=== PATIENT | female | born 1970 | race Caucasian/White ===

== ENCOUNTER 2019-07-19 19:38 | Emergency (ER) | payer OTHER, SELFPAY ==
--- NOTE | ~2019-07-19 | XR_ITS ---
EXAMINATION: XR hand RT min 3V EXAM DATE: 07/19/2019 20:07 INDICATION: Initial encounter following injury, with pain of the right hand. Drill injury between fir st and second metacarpals. TECHNIQUE: Right hand frontal, lateral and oblique projections obtained and reviewed. There is no pr ior study for comparison. FINDINGS: Right metacarpal bones are unremarkable. There are no acute fractures or dislocations iden tified. There is no subcutaneous gas. Subcutaneous gas overlying the thenar eminence from drill inj ury. There are no radiopaque foreign bodies. IMPRESSION: 1. Right hand exam without acute osseous findings. 2. Subcutaneous gas. Reviewed, dictated and finalized at location A. TRUCTION ADMINISTRATOR
[2019-07-19 19:53] VITALS: BP 132/73; PULSE 71; RESP 18; TEMP 37; O2SAT 100
--- NOTE | 2019-07-19 20:00 | ED.UPPEXIN ---
HPI - Extremity Injury (Upper) General Stated Complaint: right hand injury Time Seen by Provider: 07/19/19 20:00 Source: patient History of Present Illness HPI narrative: Patient presents with a puncture wound to the webbing between her thumb and second finger of her right hand. Patient states 4 hours ago today she was using a drill at home and missed and drilled into her hand between her thumb and second finger. No active bleeding. Patient states she cleansed the area well with saline and antibacterial soap. No active bleeding. Patient is up-to-date on her tetanus shot. Patient has normal range of motion to her hand patient denies any numbness or tingling. complaint: injury to: right Other Extremity Injury: Right: hand Place: home Related Data Home Medications Medication Instructions Recorded Confirmed sertraline 50 mg tablet 50 mg PO DAILY 06/09/19 valacyclovir 1 gram tablet 1,000 mg PO DAILY 06/09/19 Allergies Allergy/AdvReac Type Severity Reaction Status Date / Time Quinolones Allergy Severe Severe Verified 06/09/19 11:19 joint swelling and inflammation, ciprofloxacin Allergy Unknown Unknown Verified 06/09/19 11:19 Penicillins Allergy Unknown Unknown Verified 06/09/19 11:19 shellfish derived Allergy Unknown Unknown Verified 06/09/19 11:19 SEAFOOD Allergy Severe VIOLENTLY Uncoded 04/27/12 14:51 ILL Review of Systems Review of Systems: Narrative: CONSTITUTIONAL: Denies fever, chills, or sweats. EYES: Denies visual changes, redness, or discharge. ENT: Denies rhinorrhea, congestion, sore throat, or otalgia. CARDIOVASCULAR: Denies chest pain, palpitations, or edema. RESPIRATORY: Denies cough or dyspnea. GASTROINTESTINAL: Denies abdominal pain, nausea, vomiting, or diarrhea. GENITOURINARY: Denies dysuria or hematuria. SKIN: Denies rash or itching. MUSCULOSKELETAL: Denies back pain, joint pain, or myalgia. HAND EXAM -puncture wound to web between right thumb and second finger no swelling, no erythema, normal digit cascade with flexion of fingers, median nerve, ulnar nerve, radial nerve is intact. Normal sensation of each side of each finger, can perform `ok? sign, `cross over finger test of index and middle fingers? and `thumbs up? sign, normal thumb opposition, no scissoring. good capillary refill and radial pulse. normal flexion and extension of fingers and wrist. normal supination at wrist. Normal forearm and elbow exam. NEUROLOGIC: Denies headache, numbness, or weakness. PSYCHIATRIC: Denies anxiety or depression. PMFSH Past Medical History Medical History Anemia Anxiety Vaginal delivery x3 Surgical History Surgical History H/O LEEP History of dilation and curettage History of knee surgery Previous section Family History Family History Father Hypertension Grandparent Family history of coronary artery disease, Onset Age: 73 Social History Social History Smoking status: Never smoker Second hand tobacco smoke exposure: No Alcohol intake: current Comments At time of signature, agree with nursing past medical, surgical, social and family history. There is no relevant family history pertinent to the presenting complaint Exam Narrative: Exam Narrative: GENERAL: Well-appearing, well-nourished, and in no acute distress. HEAD: Normocephalic, atraumatic. EYES: PERRLA and EOMI. ENT: Nares clear, no rhinorrhea or epistaxis. Mucous membranes moist. NECK: Supple. CHEST: Clear to auscultation. No respiratory distress. HEART: Regular rate and rhythm. No murmur heard. Normal peripheral pulses. ABDOMEN: Soft, nontender, nondistended, normal active bowel sounds. EXTREMITIES: Normal range of motion. No edema. HAND EXAM -puncture wound between
== END 2019-07-19 20:15 | disposition home or self-care (01) ==
PROVIDERS: Emergency Provider Nurse Practitioner Family; PCP Internal Medicine
DX: S61.431A Puncture wound without foreign body of right hand, initial encounter (principal); W29.8XXA Contact with other powered hand tools and household machinery, initial encounter; S60.221A Contusion of right hand, initial encounter; F41.9 Anxiety disorder, unspecified
CPT/HCPCS: 73130; 99213; G0463

== ENCOUNTER 2022-07-15 09:34 | Outpatient (CLI) | payer OTHER, SELFPAY ==
--- NOTE | 2022-07-15 10:45 | NEURO_ITS ---
Impression: Patient reports history of weakness in right upper extremity. # Normal nerve conduction study. 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 # The can be seen in the setting of C5/C6 radiculopathy. # Clinical correlation recommended. Motor Nerve Conduction Upper Extremities Median Nerve Conduction Velocity (m/sec) Terminal Latency (msec) Response Voltage(mV) Elbow-Wrist Wrist Elbow Wrist Right 58 3.3 4 6 Left 58 3.8 4 5 Ulnar Nerve Conduction Velocity (m/sec) Terminal Latency (msec) Response Voltage(mV) Above Elbow Below Elbow Wrist Above Elbow Below Elbow Wrist Right 56 58 3.0 6 7 8 Left 57 57 2.8 7 7 8 F-Wave Latency Median (ms) Ulnar (ms) Right 28.7 28.7 Left 29.4 28.6 Sensory Nerve Conduction Upper Extremities Median Nerve Stimulation Terminal Latency (msec) Wrist/Digit Response Voltage (uV) Wrist Right 3.5/3.7 56/88 Left 3.9/3.8 38/29 Ulnar Nerve Stimulation Terminal Latency (msec) Wrist/Digit Response Voltage (uV) Wrist Right 3.5 59 Left 3.2 59 Radial Nerve Terminal Latency (msec) Response Voltage(mV) Right 2.2 37 Left 2.1 50 Left Right Muscles Examined Fibrillation Fasciculation Recruitment Voltage Duration Left Right Left Right Left Right Left Right Left Right Deltoid Biceps X X Brachioradialis Reduced Triceps X X Pronator Teres X X Ext Indicis X X Ext Digitorum X X Abd Poll Brev X X 1st Dorsal Interosseus Paraspinals MTDD
== END 2022-07-15 09:35 | disposition home or self-care (01) ==
LOC: ANHNEURO 09:35
PROVIDERS: PCP Internal Medicine; Visit Provider Neurological Surgery
DX: M47.819 Spondylosis without myelopathy or radiculopathy, site unspecified (principal)
CPT/HCPCS: 95886; 95911

== ENCOUNTER 2022-09-22 10:13 | Outpatient (CLI) | payer OTHER, SELFPAY ==
--- NOTE | 2022-09-22 10:30 | ECG_ITS ---
Measurements Intervals [place] Rate: 68 P: 143 [place]: 163 QRS: 143 QRSD: 71 T: 134 QT: 371 QTc: 395 Interpretive Statements SINUS RHYTHM LIMB LEAD REVERSAL POSSIBLE LEFT ATRIAL ENLARGEMENT ATYPICAL ECG NO PREVIOUS ECG AVAILABLE FOR COMPARISON Electronically Signed On 09-22-2022 11:05:39 CDT by Case Durant D.O.
[2022-09-22 10:44] LABS: Basophils Percent Auto 0.7 % (0.2-1.2); Eosinophils Absolute Auto 0.3 K/mm3 (0-0.3); Hematocrit 40.9 % (37.0-47.0); Hemoglobin 13.5 g/dL (12.0-15.0); Immature Granulocyte Absolute 0.01 K/mm3 (0.00-0.031); Immature Granulocyte Percent A 0.2 % (0-0.5); Lymphocytes Absolute Auto 1.17 K/mm3 (0.9-3.2); Lymphocytes Percent Auto 27.9 % (18.3-44.2); Mean Platelet Volume 11.3 fl (7.4-10.4); Monocytes Absolute Auto 0.5 K/mm3 (0.1-0.6); Monocytes Percent Auto 10.7 % (2.6-8.5); Neutrophils Absolute Auto 2.3 K/mm3 (1.3-6.7); Neutrophils Percent Auto 54.5 % (45.5-73.1); Platelet Count Result 171 k/mm3 (150-375); Red Blood Count 4.09 M/mm3 (4.2-5.4); White Blood Count 4.2 K/mm3 (4.5-10.0)
== END 2022-09-22 10:14 | disposition home or self-care (01) ==
LOC: ANHSURGERY 10:18
PROVIDERS: PCP Internal Medicine; Visit Provider Neurological Surgery
DX: M50.20 Other cervical disc displacement, unspecified cervical region (principal); Z01.818 Encounter for other preprocedural examination; R94.31 Abnormal electrocardiogram [ECG] [EKG]; M48.02 Spinal stenosis, cervical region; M47.812 Spondylosis without myelopathy or radiculopathy, cervical region
CPT/HCPCS: 36415; 85025; 86850; 86900; 86901; 93005

== ENCOUNTER 2022-09-26 19:09 | Observation (INO) | payer OTHER, SELFPAY ==
[2022-09-16 14:09] VITALS: BMI 22.6
--- NOTE | 2022-09-16 14:45 | PC.NURSE ---
Report to the Outpatient Waiting Room, entrance under the green pavilion located off [facility], at time _1000_ on date 09/25/22_. Planned Procedure Time: 1200__. Time changes happen often and if your time is changed the preop area will call you the afternoon before. - You and your visitor will be asked to self-screen and do not enter if you have any COVID symptoms. - A mask is optional within the hospital at this time. Patients may have clear liquids (water, carbonated beverages, clear teas, apple juice) until 3 hours prior to surgery with a maximum of 20 ounces. - No food from midnight until time of surgery Take the following medications with a SIP of water the morning of surgery: ___NONE DO NOT STOP ANY OF YOUR OTHER PRESCRIPTION MEDICATIONS PRIOR TO SURGERY ?EXCEPT THE FOLLOWING Medications to discontinue per physician ____multivitamin Date to take last dose__09/22/22 Please no make-up, nail scottish, hairspray, perfume, deodorant, or body powder the day of surgery. No jewelry (including any body piercings) or valuables the day of surgery, leave them at home. Please take a shower or bath the night before, or the morning of, surgery with an antibacterial soap. Wear comfortable, loose fitting clothing. - Jewelry must be removed prior to entering the operating room. Rings and piercings that are not removed may be cut off. - The hospital will not accept responsibility for valuables. - Please leave all valuables, including medications, at home the day of surgery. If you are going home after surgery, a licensed hammer driver must drive you home. - NO public transportation without another adult if you receive anesthesia. - We recommend that an adult stay with you for 24 hours following discharge. - We also recommend that you do not drive, make important decision, drink alcoholic beverages, or take any drugs that were not prescribed by your health care provider for at least 24 hours after your discharge time. Follow any additional instructions given to you from your surgeon. If you or anyone in your household have experienced Covid symptoms in the past week, please notify your surgeon or the nurse liaison at the phone number below for possible testing. Telephone instructions given to _PAUL and asked if any additional questions and then verbalized understanding. IF YOU HAVE ANY QUESTIONS OR CONCERNS PLEASE CALL OUR NURSE LIASONSTEPHANIE AT [phone]
[2022-09-25] VITALS (20 sets, daily range): BP systolic 113–148; BP diastolic 67–88; PULSE 69–109; RESP 12–22; TEMP 36.3–36.8; O2SAT 95–100
[2022-09-25] MEDS: LACTATED RINGERS 1,000 ML 30 ML IV CONT ×2 (09:00→13:50)
--- NOTE | 2022-09-25 10:16 | WPDANESEPPF ---
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, miles steno Patient Data Age: 51 Gender: F Height: 1.7 m Weight: 67.9 kg Last Vital Signs Temp 36.3 C L 09/25/22 09:00 Pulse 69 09/25/22 09:00 Resp 16 09/25/22 09:00 BP 126/84 09/25/22 09:00 Pulse Ox 99 09/25/22 09:00 O2 Del Method Room Air 09/25/22 09:00 Allergies Allergy/AdvReac Type Severity Reaction Status Date / Time Quinolones Allergy Severe Severe Verified 09/25/22 09:19 joint swelling and inflammation, ciprofloxacin Allergy Unknown Unknown Verified 09/25/22 09:19 Penicillins Allergy Unknown Unknown Verified 09/25/22 09:19 shellfish derived Allergy Unknown Unknown Verified 09/25/22 09:19 SEAFOOD Allergy Severe VIOLENTLY Uncoded 09/25/22 09:19 ILL Home Medications Medication Instructions Recorded Confirmed Type sertraline 50 mg tablet (Zoloft) 200 mg PO DAILY 06/09/19 09/25/22 History sumatriptan succinate 100 mg tablet 100 mg PO PRN MIGRAINE 07/09/20 09/25/22 History naproxen 500 mg tablet 500 mg PO PRN PRN Migraine Headache 09/16/21 09/25/22 History oxybutynin chloride 5 mg tablet 5 mg PO DAILY #90 tabs 07/28/22 09/25/22 Rx multivitamin with minerals-folic 1 tablet PO DAILY 09/16/22 09/25/22 History acid 0.4 mg tablet valacyclovir 1 gram tablet 1,000 mg PO DAILY PRN HSV 09/16/22 09/25/22 History Patient hx anesthesia problems: none Family hx anesthesia problems: none Results Review: All pre-operative results and documents have been reviewed as part of the pre-operative evaluation. 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 Vaginal delivery x3 Surgical History Surgical History H/O LEEP History of dilation and curettage History of knee surgery Previous section S/P endometrial ablation S/P trigger finger release Family History Family History Father Hypertension Grandparent Family history of coronary artery disease, Onset Age: 73 Social History Social History Smoking status: Never smoker Second hand tobacco smoke exposure: No Alcohol intake: current Substance use: never Substance use type: does not use Living arrangements: with family Spiritual care concerns: No Anes - Eval Final PreProcedure Day of Procedure 09/25/22 10:16 Patient weight: normal Heart: regular rate and rhythm Lungs: clear to auscultation Airway: Mallampati scale class II Neurological: alert and oriented Last oral intake: >/= 8 hours ASA classification: II Emergent: no Anesthetic plan: proceed Anesthesia type and monitoring: general ETT and standard monitoring Results Review: All pre-operative results and documents have been reviewed as part of the pre-operative evaluation. Informed Consent: The patient's anesthetic plan and its attendant risks and benefits were discussed with the patient/family/POA. Questions were solicited and answers provided to the satisfaction of the patient/family/POA.
--- NOTE | 2022-09-25 10:18 | PM.IMHP ---
H&P: HPI History of Present Illness Date/Time: 09/25/22 10:18 Chief Complaint: Neck pain, right arm weakness Narrative: Cecy Wharton is a 51-year-old female with right biceps weakness which persists. The weakness only involves the right biceps and does not involve any other specific muscle groups of the right upper extremity. She also notices muscle atrophy in the right biceps. She states that she is able to match the left arm when she does curls, but only the first set. After the first set, she has to drop weight in the right arm down to 2-5 lbs. Sometimes her right hand feels colder than the left but she otherwise does not notice any sensory issues involving her right upper extremity to include numbness, tingling, or burning sensations. She has mild neck pain that she states is chronic and is something she is used to. She can touch her chin to her chest but reports some tightness in her neck. She also reports tightness in her neck in extension and lateral rotation to both sides with lots of crunching. She is not having any bowel or bladder difficulty. She denies double vision or any other new constitutional problems at this time. Review of Systems Review of Systems: Const All systems reviewed & are unremarkable except as noted in HPI and below Denies chills, Denies fever(s), Reports headache(s), Reports weakness, Denies weight gain and Denies weight loss Eyes Denies change in vision, Denies diplopia and Denies loss of vision ENT Reports headache(s), Reports neck pain and Denies disequilibrium Card Denies chest pain and Denies dyspnea Resp Denies cough and Denies dyspnea GI Denies abdominal pain, Denies change in bowel habits, Denies fecal incontinence and Denies vomiting Denies hematuria, Denies urinary frequency, Denies difficulty voiding, Denies dysuria, Denies urinary incontinence, Denies urinary hesitancy and Denies urinary urgency Musc Reports as per HPI, Reports muscle weakness, Reports neck pain, Denies numbness, Reports stiffness and Denies tingling Skin/ Breast Reports system reviewed and no additional complaints, except as documented Neuro Reports as per HPI, Reports headache(s), Denies loss of vision, Denies numbness, Denies tingling, Denies disequilibrium and Reports weakness Psych Reports no additional complaints, Denies depression and Denies hopelessness Endo Reports no additional complaints and Denies polyuria Gregorio/ Lymph Reports no additional complaints Aller/ Immun Reports no additional complaints PMFSH Past Medical History Medical History Anemia Anxiety Herpes simplex without complication Vaginal delivery x3 Surgical History Surgical History H/O LEEP History of dilation and curettage History of knee surgery Previous section S/P endometrial ablation S/P trigger finger release Family History Family History Father Hypertension Grandparent Family history of coronary artery disease, Onset Age: 73 Social History Social History Smoking status: Never smoker Second hand tobacco smoke exposure: No Alcohol intake: current Substance use: never Substance use type: does not use Living arrangements: with family Spiritual care concerns: No Meds Home Medications and Allergies Home Medications Medication Instructions Recorded Confirmed Type sertraline 50 mg tablet (Zoloft) 200 mg PO DAILY 06/09/19 09/25/22 History sumatriptan succinate 100 mg tablet 100 mg PO PRN MIGRAINE 07/09/20 09/25/22 History naproxen 500 mg tablet 500 mg PO PRN PRN Migraine Headache 09/16/21 09/25/22 History oxybutynin chloride 5 mg tablet 5 mg PO DAILY #90 tabs 07/28/22 09/25/22 Rx multivitamin with minerals-folic 1 tablet PO DAILY 09/16/22 09/25/22 History acid 0.4 mg tabl
--- NOTE | 2022-09-25 10:22 | WPDHPUPDATE1 ---
History and Physical Update Update Date/Time: 09/25/22 10:22 History and Physical has been reviewed, including an updated exam of the patient. There are NO changes in the patient's condition. Risks, benefits, and alternatives have been discussed and questions answered. Patient agrees to proceed with procedure.
[2022-09-25] MEDS: ceFAZolin 2 GM/D5W 50 ML 2 GM/50 ML BAG IVPB (11:13)
[2022-09-25] MEDS: SCOPOLAMINE 1.5 MG PATCH TRANSDERM (11:14)
[2022-09-25] MEDS: LIDO 1%/EPINEPHRINE/PF 1:200,000 30 ML VIAL 10 ML XX (11:47)
--- NOTE | 2022-09-25 13:41 | W.PM.PROC2 ---
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 The of operation on the right side of her neck was examined, marked for incision, prepped and draped in routine sterile fashion. Incision was marked from the midline over the medial aspect of the sternocleidomastoid muscle in curvilinear transverse fashion 3 fingerbreadths above the sternal notch. This area was injected with 0.5% lidocaine [id number] epinephrine. Intravenous antibiotics given prior to incision. Incision was made with a 10 blade scalpel down to the platysma muscle. The skin was undermined and the platysma muscle was divided longitudinally with its fibers using Metzenbaum scissors. Plane was then dissected medial to the sternocleidomastoid muscle down to the anterior aspect of spine using the finger and Metzenbaum scissors. A verifying x-rays obtained to verify the level of operation. At the C4-5 and C5-6 levels the longus colli muscle was dissected free of the anterior aspect of the spine in a subperiosteal plane using Bovie cautery. A Shadow Line retractor system was placed. [place] pins were placed in C4 and C6 and distraction placed over both disc spaces simultaneously. Diskectomy and arthrodesis procedures were performed identically at each level. This was done by entering the disc space using a 15 blade scalpel cutting along the margin of the bone above and below. A curved curette and pituitary rongeur were used to remove as much cartilaginous endplate and disc material as possible down to the annulus and ligament posteriorly. A Midas Que drill was used to root remove the anterior osteophyte as well as to bur down the endplates to bleeding cortical flat surfaces and to begin a bony foraminotomy bilaterally. Under microscopy Um the annulus and ligament where interrupted using a nerve hook and and 2. Kerrison punch was used to remove the annulus, ligament and posterior osteophyte and complete a bony foraminotomy bilaterally. This was done until a nerve hook could be placed out each foramen to confirm lack compression. The disc spaces were then sized and a 5 mm interbody device was chosen for C5-6 and a 6 mm device for C4-5. These were filled with a mixture of I factor and local autograft bone. They were then tamped into the interspace to 1-2 mm countersink. 30 mm anterior plate was chosen placed in position and secured using 614 x 4 mm anterior screws advancing the locking mechanism of the plate to hand tightness. Locking mechanism was then engaged each screw. A verifying x-rays obtained to verify good position of the instrumentation which was confirmed. The wound was then copiously irrigated with bacitracin irrigation all bleeding stopped with bipolar and Bovie cautery and Gelfoam thrombin powder. The wound was then closed in layered fashion with 3-0 Vicryl interrupted sutures in the platysma muscle and 3-0 Vicryl buried interrupted sutures in the dermis. The skin was closed with a running 4-0 Monocryl subcuticular stitch and dressed with Dermabond. The patient was allowed to wake up in the operating room was taken the recovery room in stable condition. There were no immediate complications of this operation. All counts were reported correct in the case. Blood loss was 25 cc. The patient was neurologically at her baseline postoperatively. Estimated Blood Loss 25 IV Fluids 1,500 Complications None Condition Stab
[2022-09-25] MEDS: fentaNYL CITRATE INJ (*CRX) 100 MCG/2 ML VIAL 25 MCG IV PUSH ×3 (14:26→14:35)
--- NOTE | 2022-09-25 16:50 | ADMGEN ---
This patient, Cecy Wharton, was admitted to 2 Medical Room 255-01. Patient/family oriented to hospital policies and general routines including ID bracelet, bed and alarms, visiting hours, pain management, procedures, bathroom and other care routines, personal items, smoking policy, room service/diet, and visiting hours. Information on how to activate the Rapid Response Team has been discussed. Patient/Family are encouraged to report perceived risks to care and to ask questions if they do not understand what they are told or what they should do.
[2022-09-25] MEDS: HYDROcodone/acetaminophen (*CRX) 5-325 MG TABLET 1 TAB PO ×2 (18:14→22:31)
--- NOTE | 2022-09-25 19:40 | PC.NURSE ---
Spoke with pharmacy about drug interaction for decadron. Since pt is no longer on neostigmine, then it is ok to override.
[2022-09-25] MEDS: DOCUSATE SODIUM 100 MG CAPSULE PO (22:31)
--- NOTE | 2022-09-25 23:15 | PC.NURSE ---
As a courtesy, Ophthalmic Surgeon and Anesthesia came to check on the patient. Concern is for the patient's airway. Ice chips were given to help with internal swelling. Ice pack has been applied to the neck for external swelling. No complaints of pain, inability to breathe, or inability to swallow. Physician was provided photos of the swelling since it was acute. Physician would like to be notified if changes happen. Continuous pulse ox and tele placed on patient. Will continue to monitor.
[2022-09-26] VITALS (12 sets, daily range): BP systolic 112–144; BP diastolic 60–76; PULSE 72–89; RESP 16–20; TEMP 36.6–37.3; O2SAT 98–100
--- NOTE | ~2022-09-26 | XR_ITS ---
EXAMINATION: XR fluoroscopy no charge DATE: 09/25/2022 13:38 INDICATION: Cervical spondylosis. TECHNIQUE: 3 intraoperative spot fluoroscopic views of the cervical spine were obtained. I was not pr esent. Fluoroscopy exposure time was 7 seconds. COMPARISON: None. FINDINGS: There are changes of anterior fusion procedure from C4 to C6 with interbody devices and ant erior plate and screws. IMPRESSION: 1. Anterior fusion procedure from C4 to C6. Reviewed, dictated and finalized at location E.
--- NOTE | 2022-09-26 00:20 | PC.NURSE ---
Pt found to be sleeping at this time. HOB elevated and sleeping on R side.
--- NOTE | 2022-09-26 01:13 | PC.NURSE ---
Check on pt with warehouse packer. Pt was awake and alert. No signs of sob or difficulty swallowing. Appears swelling has decreased. Pt is taking a break from ice pack.
--- NOTE | 2022-09-26 02:44 | PC.NURSE ---
Pt is in bed after going to the bathroom. No complaints at this time.
[2022-09-26] MEDS: HYDROcodone/acetaminophen (*CRX) 5-325 MG TABLET 1 TAB PO ×4 (04:24→19:34)
--- NOTE | 2022-09-26 04:27 | PC.NURSE ---
Pt requested pain meds for her throat. Pt mentioned that it was sore due to some post nasal drip. Also, some discomfort when taking a deep breath. Swelling has decreased still. Pt still applying cold pack and drinking cold fluids.
--- NOTE | 2022-09-26 06:33 | PC.NURSE ---
No further complaints, regarding swelling, from patient over night. Swelling has decreased since the beginning of shift. Patient is still using ice externally and cold fluids. Pt is concerned about sore throat from post nasal drip and being intubated during surgery. Vital signs and telemetry are still within normal limits. Will pass on information to day shift.
[2022-09-26] MEDS: SERTRALINE HCL 50 MG TABLET 200 MG PO (08:11)
[2022-09-26] MEDS: oxyBUTYnin CHLORIDE 5 MG TABLET PO (08:11)
[2022-09-26] MEDS: DOCUSATE SODIUM 100 MG CAPSULE PO (08:11)
[2022-09-26] MEDS: THERAPEUTIC MULTIVITAMINS/MINERALS TAB (*BKC) 1 TABLET PO (08:11)
--- NOTE | 2022-09-26 10:42 | PC.NURSE ---
Called Dr. Valadez regarding patient concerns over hematoma that developed overnight on neck near incision and to receive orders for Chloraseptic lozenges. Rory had contacted patient around 0700 and according to patient had told pt that he would be there in 15 mins to assess her. Rory asked me over the phone if patient is ready for discharge, as long as she could swallow and breathe okay . Notified Rory that patient was waiting for him to see her, and he let me know he would send his partner to see her since he is 50 miles away .
--- NOTE | 2022-09-26 10:49 | WPDANESPN ---
Anes - Prog Note Post-Op Date/Time: 09/26/22 10:49 Cardiovascular status: normal Respiratory status: normal Airway patency: baseline Mental status: baseline Post-Op hydration status: normal Vital Signs: Last Vital Signs Temp 36.6 C 09/26/22 07:34 Pulse 72 09/26/22 07:34 Resp 17 09/26/22 07:34 BP 144/74 H 09/26/22 07:34 Pulse Ox 100 09/26/22 07:34 O2 Del Method Room Air 09/26/22 09:12 O2 Flow Rate 8 09/25/22 14:05 Pain Score (VAS): Right neck swollen, saw her 09/25/22 8095. placed pt on monitor Dr Valadez called by RN I/O: Intake & Output 09/25/22 09/26/22 09/26/22 23:59 07:59 15:59 Intake Total 100 240 Balance 100 240 Patient Feedback: Patient satisfied with anesthetic care.
--- NOTE | 2022-09-26 15:55 | PC.NURSE ---
Spoke with Dr. Valadez regarding new pt complaint of sharp pain that radiates down her back and front side of body when swallowing. Rory does not believe pain is related to pt's hematoma and he stated he will be here in roughly 1.5 hours at the earliest to assess patient.
--- NOTE | 2022-09-26 23:00 | WPDNEUROSGPN ---
Progress Note: A&P Assessment and Plan (1) Foraminal stenosis of cervical region: Code(s): M48.02 - Spinal stenosis, cervical region Status: Acute (2) Cervical disc herniation: Code(s): M50.20 - Other cervical disc displacement, unspecified cervical region Status: Acute (3) Cervical spondylosis: Code(s): M47.812 - Spondylosis without myelopathy or radiculopathy, cervical region Status: Acute Plan Ricardo is doing well status post C4-5 and C5-6 anterior cervical diskectomy and fusion but has swelling in her neck mostly on the right which seems to have stopped increasing in size and may represent hematoma. There is no tension in the tissues and the swelling is somewhat diffuse at this point. Steroids were helpful and will be continued. If she continues to be stable then she may be discharged tomorrow. Subjective Date/time seen: 09/26/22 23:00 Interval history: Cecy is postop day 1 status post C4-5 and C5-6 anterior cervical diskectomy and fusion her postoperative course has been complicated by swelling in the right side of her neck that may represent hematoma. She has continued to swallow and is limited more by a sore throat and then by straw option. She has had no issues with breathing. Her voice remains strong. She is not having any new neurologic issues in either upper extremities. She has persistent right biceps weakness. Exam Narrative: Strength is decreased in the right biceps compared to left but is otherwise normal and symmetric in the upper extremities. Sensation was intact to light touch throughout the upper extremities. Wound is clean, dry and intact. Objective Data Vital Signs Vital Signs: Vital Signs - 24 hr 09/25/22 23:04 09/26/22 00:00 09/26/22 03:29 Temperature 97.9 F 98.2 F Pulse Rate 73 87 77 Respiratory Rate 18 17 Blood Pressure 113/82 116/76 Pulse Oximetry 98 98 Oxygen Delivery 09/26/22 04:00 09/26/22 07:34 09/26/22 09:12 Temperature 97.9 F Pulse Rate 89 72 Respiratory Rate 17 Blood Pressure 144/74 H Pulse Oximetry 100 Oxygen Delivery Room Air 09/26/22 08:00 09/26/22 08:00 09/26/22 12:28 Temperature 98.2 F Pulse Rate 76 73 Respiratory Rate 17 Blood Pressure 118/68 Pulse Oximetry 99 Oxygen Delivery Room Air 05/12/23 12:00 09/26/22 16:00 09/26/22 17:55 Temperature 98.2 F Pulse Rate 79 78 85 Respiratory Rate 17 Blood Pressure 118/63 Pulse Oximetry 99 Oxygen Delivery 09/26/22 19:34 09/26/22 20:00 Temperature 99.2 F 99.2 F Pulse Rate 78 78 Respiratory Rate 20 20 Blood Pressure 112/60 112/60 Pulse Oximetry 99 99 Oxygen Delivery Intake/Output Intake/Output: Intake & Output 09/23/22 09/24/22 09/25/22 09/26/22 23:59 23:59 23:59 23:59 Intake Total 1650 1210 Balance 1650 1210 Meds/Results Medications: Active Medications Generic Name Dose Route Start Last Admin Trade Name Freq PRN Reason Stop Dose Admin Hydrocodone Bitart/Acetaminophen 1 tab 09/25/22 16:34 09/26/22 19:34 Hydrocodone/Acetaminophen (*Crx) 5-325 Mg Tablet PO 1 tab Q4H PRN Administration Mild Pain (1-3) Hydrocodone Bitart/Acetaminophen 1 tab 09/25/22 16:34 Hydrocodone/Acetaminophen (*Crx) 10-325 Mg Tablet PO Q4H PRN Moderate Pain (4-6) Al Hydrox/Mg Hydrox/Simethicone 20 ml 09/25/22 16:34 Mag Hydrox/Al Hydrox/Simeth 30 Ml Udc PO Q4H PRN Indigestion/Heartburn Benzocaine 1 lozenge 09/26/22 10:21 Benzocaine/Menthol (*Bkc) 18 Ea Lozenge PO PRN PRN Sore Throat Bisacodyl 10 mg 09/25/22 16:34 Bisacodyl 10 Mg Suppository RECTAL DAILY PRN Constipation Cyclobenzaprine HCl 10 mg 09/25/22 16:34 Cyclobenzaprine Hcl 10 Mg Tablet PO TID PRN Muscle Spasms Dexamethasone 4 mg 09/27/22 00:00 Dexamethasone 4 Mg Tablet PO Q6H LUCAS Docusate Sodium 100 mg 09/25/22 21:00 09/26/22 20:49 Docusate
[2022-09-26] MEDS: DEXAMETHASONE 4 MG TABLET PO (23:04)
[2022-09-27] VITALS: PULSE 81
[2022-09-27] MEDS: HYDROcodone/acetaminophen (*CRX) 10-325 MG TABLET 1 TAB PO (01:21)
[2022-09-27 04:00] VITALS: BP 117/72; PULSE 79; PULSE 80; RESP 20; TEMP 36.9; O2SAT 99
[2022-09-27] MEDS: HYDROcodone/acetaminophen (*CRX) 5-325 MG TABLET 1 TAB PO ×2 (05:28→12:03)
[2022-09-27] MEDS: DEXAMETHASONE 4 MG TABLET PO ×2 (05:28→12:03)
[2022-09-27] MEDS: SERTRALINE HCL 50 MG TABLET 200 MG PO (08:08)
[2022-09-27] MEDS: DOCUSATE SODIUM 100 MG CAPSULE PO (08:08)
[2022-09-27] MEDS: oxyBUTYnin CHLORIDE 5 MG TABLET PO (08:08)
[2022-09-27] MEDS: THERAPEUTIC MULTIVITAMINS/MINERALS TAB (*BKC) 1 TABLET PO (08:08)
[2022-09-27 09:59] VITALS: BP 128/77; PULSE 84; RESP 16; TEMP 36.3; O2SAT 100
--- NOTE | 2022-10-09 07:44 | PM.DS ---
DS: Admitting Diagnosis Discharge Date 09/27/22 Admitting Diagnosis C4-5 and C5-6 spondylosis neural foraminal narrowing and central canal stenosis DS: Discharge Diagnosis Discharge Diagnosis Plan Same DS: Summary Hospital Course Reason for hospitalization: Right upper extremity weakness Hospital Course: Cecy is a 51-year-old female with neck and arm pain and right upper extremity weakness related to issues at C4-5 and C5-6 who presents for anterior cervical diskectomy and fusion at those levels. She was taken the operating room on 09/25/2022 with the aforementioned operation was performed without complication. The patient for postoperatively. On postoperative day 1 and laid on the day of her operation she was discovered to be developing a hematoma under her incision. This did not threaten her breathing or swallowing. It improved clinically over the next day or so. By postop day 2 she was eating, ambulating, emptying her bladder her pain was under control with by mouth pain medicine. Her wound remained clean dry and intact. The mass under her incision remained soft. She was therefore allowed to be discharged home. Time Spent with Patient Time attestation: Total time spent providing and/or coordinating discharge services: Discharge Plan Discharge Attending physician on discharge: Javier Valadez Consulting providers: Anitha Beyer; Suleman Pacheco; Esteban Calabrese V. Discharging Clinician: Javier Valadez Anticipated Discharge Date/Time: 09/27/22 10:52 Patient Disposition: Home, Self-Care Activity: may shower Diet: as tolerated Wound Care Instructions: follow printed instructions Discharge Instructions: Remove the Scopolamin INSTRUCTIONS AFTER YOUR CERVICAL FUSION (ANTERIOR OR POSTERIOR)/CERVICAL DISC REPLACEMENT (ARTHRODESIS) Incisions may be closed with either: Steri-strip tapes (let them wear off on their own). Surgical glue (let it peel off on its own). Sutures or marie (call the office for an appointment to have these removed). Keep the incision dry for the first three days after surgery. Never apply ointments or lotions to the incision. The incision should be checked daily. Notify the office if there is drainage, redness, or if you have fever with a temperature of over 100 degrees. After the third postop day, it is okay to shower. Let soap and water run over your incision. No soaking in a tub, hot tub, or pool for at least one month. You are encouraged to walk as much as comfortable, with assistance as needed. For example, it may be beneficial to walk short distances hourly during the waking hours and gradually increase walking during your recovery period. Fatigue can be common. If a collar has been instructed by your physician, follow the instructions you were given. Please call the office for clarification if needed. Avoid any bending or heavy lifting. You have an [id number]-pound lift restriction until further advised by your physician (A gallon of milk weighs eight pounds). Sometimes a bone growth stimulator will be used after surgery. Instructions for the use of the stimulator will come from your inbound customer service representative. Make frequent position changes, avoiding long periods of sitting. Try not to sit more than 30 minutes at a time. You may engage in sexual activity in two weeks as tolerated. No housework, especially vacuuming, making beds, or doing laundry until seen in the office. You may walk stairs carefully. Minimize car rides for two weeks. Driving can usually be resumed after three to four weeks; however, you may not drive at that time if still taking pain medications, or if you are still wearing your hard collar. Once you are discharged from the hospital, please call the office to set up your postop appointment. The physician may order pain medication and/or muscle relaxers. As time goes by, you should require less of these. Always take your medication as ordered, and only if need
== END 2022-09-27 12:10 | disposition home or self-care (01) ==
LOC: ANHSURGERY 19:10 → ANH2MED 19:17
PROVIDERS: Admitting Provider Neurological Surgery; PCP Internal Medicine; Visit Provider Neurological Surgery
PROC: (CPT 63030; principal; 2022-09-25 10:00)
DX: M48.02 Spinal stenosis, cervical region (principal); M50.20 Other cervical disc displacement, unspecified cervical region; M47.812 Spondylosis without myelopathy or radiculopathy, cervical region; D64.9 Anemia, unspecified; F41.9 Anxiety disorder, unspecified; B00.9 Herpesviral infection, unspecified; F10.90 Alcohol use, unspecified, uncomplicated; Z79.1 Long term (current) use of non-steroidal anti-inflammatories (NSAID); Z79.899 Other long term (current) drug therapy
CPT/HCPCS: 22551; 22552; 22853 ×2; 20936; 97161; 97165; 99199; A9270; C1713; G0378; J0690; J1100; J1170; J2250; J2405; J2704; J2710; J3010; J7120; J8540

== ENCOUNTER → 2022-11-03 13:03 | Outpatient (CLI) | payer OTHER, SELFPAY ==
--- NOTE | ~2022-11-03 | XR_ITS ---
Cervical Spine: AP, lateral, open-mouth views Clinical History: Pain Findings: There is straightening of the normal cervical lordosis. No acute fracture or subluxation ev ident. There is anterior fusion from C4 through C6. There is moderate degenerative disc narrowing at C3-C4, and advanced degenerative disc narrowing at C6-C7. The intervertebral disc spaces are well alicia ntained. Pre-vertebral soft tissues are unremarkable. Impression: Anterior fusion from C4 to C6. Additional degenerative changes, as above. Reviewed, dictated and finalized at location M. Impression: Anterior fusion from C4 to C6. Additional degenerative changes, as above.
== END ==
PROVIDERS: PCP Internal Medicine; Visit Provider Neurological Surgery
DX: Z98.1 Arthrodesis status (principal); Z98.890 Other specified postprocedural states
CPT/HCPCS: 72040

== ENCOUNTER → 2024-02-02 08:27 | Outpatient (REF) | payer BC, SELFPAY | LOC: ANHLAB 08:27 | PROVIDERS: PCP Internal Medicine; Visit Provider Plastic Surgery | DX: L72.3 Sebaceous cyst (principal) | CPT/HCPCS: 88305 ==